=== PATIENT | female | born 1985 | race Hispanic/Latino ===

== ENCOUNTER 2021-02-19 05:38 | Observation (INO) | payer BC ==
[2021-02-18 11:50] VITALS: BP 143/86
[2021-02-18 12:07] LABS: BASOPHILS % (AUTO) 0.7 % (0.0-5.0); EOSINOPHILS % (AUTO) 0.3 % (0.0-8.0); HEMATOCRIT 41.7 % (36-48); LYMPHOCYTES % (AUTO) 25.9 % (21.0-51.0); MEAN CORPUSCULAR HGB CONC 32.6 g/dL (32.0-36.0); MEAN CORPUSCULAR VOLUME 91.9 fL (79-99); MONOCYTES % (AUTO) 8.3 % (3.0-13.0); NEUTROPHILS % (AUTO) 64.5 % (40.0-77.0); PLATELET COUNT (AUTO) 299 K/uL (130-400); RED BLOOD CELL COUNT(AUTO) 4.54 MIL/uL (4.00-5.50); RED CELL DISTRIBUTION WIDTH 12.3 % (11.0-15.5); WHITE BLOOD COUNT (AUTO) 9.1 K/uL (4.8-10.8)
[2021-02-19] VITALS (21 sets, daily range): BP systolic 135–164; BP diastolic 74–97
[~2021-02-19] VITALS: Ht 157.5 cm; Wt 63.8 kg
[~2021-02-19 05:38] MED LIST: CEFAZOLIN SODIUM 1 GM VIAL ONE; LACTATED RINGERS 1000ML 1,000 ML IV ONE
[2021-02-19] MEDS ORDERED: LIDOCAINE PF 100MG/5ML (2%) SYRINGE 5ML ONE (06:24)
[2021-02-19] MEDS ORDERED: DEXAMETHASONE SOD PHOSPHATE 4 MG/ML 1ML VIAL ONE (06:24)
[2021-02-19] MEDS ORDERED: SUCCINYLCHOLINE CHLORIDE 20 MG/ML 10 ML VIAL ONE (06:24)
[2021-02-19] MEDS ORDERED: ROCURONIUM 10MG/1ML SYR 10 MG/ML ML ONE (06:25)
[2021-02-19] MEDS ORDERED: PROPOFOL 10 MG/ML 20ML VIAL IV ONE (06:25)
[2021-02-19] MEDS ORDERED: ONDANSETRON 4MG INJ ONE (06:25)
[2021-02-19] MEDS ORDERED: MIDAZOLAM HCL 1 MG/ML 2ML VIAL ONE (06:25)
[2021-02-19] MEDS ORDERED: NEOSTIGMINE 5MG/5ML SYR IV ONE (06:25)
[2021-02-19] MEDS ORDERED: GLYCOPYRROLATE 1 MG/5 ML SYRINGE ONE (06:25)
[2021-02-19] MEDS ORDERED: FENTANYL CITRATE PF 50 MCG/1 ML 5ML AMP IV ONE (06:26)
[2021-02-19] MEDS ORDERED: KETAMINE 50MG/ML SYRINGE 50 MG/ML DISP.SYRIN IV ONE (06:31)
[2021-02-19] MEDS ORDERED: CEFAZOLIN SODIUM 1 GM VIAL IVP ONE (08:00)
[2021-02-19] MEDS ORDERED: LACTATED RINGERS 1000ML 1,000 ML IV SCH (08:00)
[2021-02-19] MEDS ORDERED: MEPERIDINE-PF 25 MG/ML SYG ONE ×2 (09:07→09:20)
[2021-02-19] MEDS ORDERED: ONDANSETRON 4MG INJ IVP PRN (10:00)
[2021-02-19] MEDS ORDERED: IBUPROFEN 600 MG TABLET PO PRN (10:00)
[2021-02-19] MEDS ORDERED: ACETAMINOPHEN WITH CODEINE 1 TAB TAB PO PRN (10:00)
[2021-02-19] MEDS ORDERED: PROMETHAZINE HCL 25 MG/ML 1ML AMPULE IM PRN (10:00)
[2021-02-19] MEDS ORDERED: BISACODYL 10 MG SUPP.RECT RC PRN (10:00)
[2021-02-19] MEDS: DEXTROSE 5 %-0.45 % NACL 1,000 ML IV PRN ×2 (10:32→17:46)
[2021-02-19] MEDS: PROMETHAZINE HCL 25 MG/ML 1ML AMPULE IM PRN ×2 (11:39→15:33)
[2021-02-19] MEDS: MEPERIDINE-PF 75 MG/ML SYG IM PRN ×2 (11:43→15:35)
[2021-02-19] MEDS: SIMETHICONE 80 MG TAB.CHEW PO PRN (21:22)
[2021-02-19] MEDS: DOCUSATE SODIUM 100 MG CAP PO PRN (21:22)
[2021-02-20] MEDS: DEXTROSE 5 %-0.45 % NACL 1,000 ML IV PRN (01:29)
[2021-02-20] MEDS ORDERED: HYDROCODONE/ACETAMINOPHEN 7.5/325 MG TAB PO PRN (02:00)
[2021-02-20] MEDS ORDERED: IBUPROFEN 800 MG TAB PO PRN (02:00)
[2021-02-20] MEDS ORDERED: HYDROCODONE/ACETAMINOPHEN 5/325 MG TAB PO PRN (02:15)
[2021-02-20 03:57] VITALS: BP 137/76
[2021-02-20 05:24] LABS: HEMATOCRIT 39.2 % (36-48); MEAN CORPUSCULAR HEMOGLOBIN 29.9 pg (27.0-33.0); MEAN CORPUSCULAR HGB CONC 32.7 g/dL (32.0-36.0); MEAN CORPUSCULAR VOLUME 91.6 fL (79-99); RED BLOOD CELL COUNT(AUTO) 4.28 MIL/uL (4.00-5.50); WHITE BLOOD COUNT (AUTO) 10.6 K/uL (4.8-10.8)
[2021-02-20 07:29] VITALS: BP 133/87
[2021-02-20] MEDS ORDERED: ACET1TAB25 PO (08:56)
[2021-02-20] MEDS: DOCUSATE SODIUM 100 MG CAP PO PRN (09:14)
[2021-02-20] MEDS: SIMETHICONE 80 MG TAB.CHEW PO PRN (09:14)
[2021-02-20 11:04] VITALS: BP 134/78
[2021-02-20] MEDS ORDERED: ACETAMINOPHEN WITH CODEINE 1 TAB TAB PO PRN (12:00)
== END 2021-02-20 13:10 | disposition home or self-care (01) ==
LOC: DAH 05:38 → DAHIP 05:39 → WSH 09:55
PROVIDERS: ADMIT Obstetrics & Gynecology; ATTEND Obstetrics & Gynecology
DX: D25.9 Leiomyoma of uterus, unspecified (principal); Z20.822 Contact with and (suspected) exposure to COVID-19; N92.1 Excessive and frequent menstruation with irregular cycle; K46.9 Unspecified abdominal hernia without obstruction or gangrene; N83.202 Unspecified ovarian cyst, left side
CPT/HCPCS: 36415 ×2; 58263; 84703; 85025; 85027; 86850; 86900; 86901; 96360; 96361 ×2; 96372; A4215; A4221; A4222; A4223; A4351; A4510; A4600; A4606; A4663; A4930; A6260; C9803; G0378 ×28; J0330; J0690; J1100; J2001; J2175 ×4; J2250; J2405; J2550 ×2; J2704; J2710; J3010; J3490 ×2; J7030; J7120 ×2; U0003